=== PATIENT | female | born 1975 | race Two or more races ===

== ENCOUNTER 2018-02-23 10:55 | Emergency (ER) | payer OTHER ==
[~2018-02-23] VITALS: Ht 157.5 cm; Wt 64.9 kg
[~2018-02-23 10:55] MED LIST: BENADRYL25 MG; CLONAZEPAM0.5 MG PO; MEDROLPACK PO; OMEPRAZOLE40 MG PO; ZANTAC150 MG PO; ZYRTEC10 MG PO
[2018-02-23] MEDS ORDERED: ZOLOFT50 MG (11:25)
== END 2018-02-23 16:45 | disposition home or self-care (01) ==
LOC: ER 10:55
DX: F06.4 Anxiety disorder due to known physiological condition (principal)